=== PATIENT | female | born 1945 | race Caucasian/White ===

== ENCOUNTER 2022-05-09 14:05 | Outpatient (CLI) | payer MEDICARE, SELFPAY ==
--- NOTE | 2022-05-09 14:30 | MR_ITS ---
[facility] [address] [facility] [address] Phone:?[phone] Fax:?[phone] Referring Physician Information: Austen Redding M.D. [address] [facility] [address] Phone:?[phone] Fax:?[phone] Patient:Juana Moncada D.O.B:?1945 Sex:?Female Phone:?[phone] [facility] MRN:?[id number] Exam Date:?05/09/2022 ? EXAM: MR CERVICAL SPINE WITHOUT CONTRAST 1.5T CLINICAL INFORMATION: Neck pain, left arm numbness. CORRELATIVE IMAGES: Radiograph 10/03/2020. TECHNICAL INFORMATION: T1, T2 GRE, T2 FSE and STIR sagittal thin sections with T2 GRE and FSE axial sections at selected levels. CONTRAST:?None. SEDATION: None. INTERPRETATION:?Spinal Cord: No spinal cord signal abnormality. No Chiari malformation. Bony Structure and Alignment: Lordotic alignment of cervical spine. Osseous and paraspinous structures: Bone marrow signal is unremarkable. 8mm right thyroid nodule with possible calcification, frequently incidental (sagittal image 17). Vertebral artery flow voids are present, dominant on left. Facet Joints: Moderate to advanced multilevel facet degeneration, most notably left C3-4 through C5-6, C7-T1; milder on the right. No inflammatory facet arthropathy. Disc Degeneration/Operative changes: 2. Advanced disc degeneration with vertical disc narrowing most notably C2-3 through C5-6, C7-T1. Spondylotic ridging, bulging and/or ligamentum flavum buckling produce moderate central stenosis eccentric to the left at C3-4 with mild cord compression, moderate central stenosis with ventral cord compression at C4-5, mild to moderate central stenosis C6-7 with ventral cord contouring. Milder cord encroachment at other cervical and upper thoracic levels. Uncinated spurring and/or facet degeneration produces chronic foraminal stenosis, advanced left C3-4, C4-5, moderate to marked C5-6 through C6-7 and C2- 3; marked right C3-4, C5-6 and moderate C4-5. This produces nerve root compression or milder impingement at multiple levels. No significant atlantoaxial or atlanto-occipital pathology. CONCLUSION: 1. 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 2. Multilevel chronic foraminal stenosis eccentric to the left as delineated above. 3. Multilevel primarily left-sided advanced facet degeneration without inflammatory arthropathy. 4. No spinal cord signal pathology. RSP Electronically signed on 05/11/2022 10:46:00 AM by Jeromy Cardenas M.D.
== END 2022-05-09 14:06 | disposition home or self-care (01) ==
PROVIDERS: PCP Family Medicine; Visit Provider Family Medicine
DX: M54.2 Cervicalgia (principal); M50.31 Other cervical disc degeneration, high cervical region; R20.0 Anesthesia of skin
CPT/HCPCS: 72141

== ENCOUNTER 2023-07-30 13:25 | Outpatient (CLI) | payer MEDICARE, SELFPAY ==
--- NOTE | 2023-07-30 13:45 | MR_ITS ---
Patient: SHANON VILLALOBOS Facility:?[facility] Patient ID:?[id number] Site Patient ID:?[id number]. Site :?1945 Study:?MRI-Spine Lumbar w/o-07/30/2023 2:16:33 PM Ordering Physician:Tiffanie Redding Final Report: Indication: Lower back pain. Technique: Multisequence multiplanar MRI of the lumbar spine without the use of intravenous contrast. Comparison: MRI lumbar spine dated 01/26/2015. Findings: Similar grade 1 4 millimeter anterolisthesis at L4-L5. Vertebral body heights are maintained. Bone marrow signal intensity is within normal limits. Slight progression of multilevel intervertebral disc height loss most at L3-L4 and L4- L5. The conus medullaris terminates normally at L1 level. The paraspinal soft tissues are within normal limits. T12-L1: No significant spinal canal or neural foraminal stenosis. L1-L2: No significant spinal canal or right neural foraminal narrowing. Slight progression of mild-moderate left neural foraminal narrowing resulting from symmetric disc bulging and facet joint hypertrophy. L2-L3: No significant spinal canal stenosis. Similar mild-moderate left neural foraminal narrowing resulting from symmetric disc bulging and facet joint hypertrophy. No significant right neural foraminal narrowing. L3-L4: No significant spinal canal stenosis. Slight progression of moderate bilateral neural foraminal narrowing as sequela of symmetric disc bulging, endplate osteophytic ridging, and facet joint hypertrophy. L4-L5: Similar narrowing of the lateral recesses, worsening of now severe right neural foraminal narrowing, and similar mild left neural foraminal narrowing resulting from facet joint hypertrophy with anterolisthesis and disc bulge/uncovering. L5-S1: No significant spinal canal stenosis. Mild right and mild-moderate left neural foraminal narrowing resulting from symmetric disc bulging and facet joint hypertrophy. Small bilateral facet joint effusions. Impression: 1. Similar grade 1 4 millimeter anterolisthesis at L4-L5. 2. Slight progression of multilevel intervertebral disc height loss most pronounced at L3-L4 and L4-L5. 3. At L1-L2, slight worsening of mild-moderate left neural foraminal narrowing. 4. At L2-L3, similar mild-moderate left neural foraminal narrowing. 5. At L3-L4, slight worsening of moderate bilateral neural foraminal narrowing. 6. At L4-L5, similar narrowing of the lateral recesses and worsening of now severe right neural foraminal narrowing. 7. At L5-S1, similar mild-moderate left neural foraminal narrowing. Dictated by Howard Valerio MD @ 07/31/2023 1:52:58 PM Signed by:?Howard Valerio MD @07/31/2023 1:52:58 PM (Electronic Signature)
== END 2023-07-30 13:26 | disposition home or self-care (01) ==
LOC: MRI 13:26
PROVIDERS: PCP Family Medicine; Visit Provider Family Medicine
DX: M54.50 Low back pain, unspecified (principal); M51.26 Other intervertebral disc displacement, lumbar region; M51.27 Other intervertebral disc displacement, lumbosacral region
CPT/HCPCS: 72148

== ENCOUNTER 2023-09-09 09:35 | Outpatient (CLI) | payer MEDICARE, SELFPAY | END 2023-09-09 09:36 | disposition home or self-care (01) | LOC: INJ CL 09:36 | PROVIDERS: PCP Family Medicine; Visit Provider Family Medicine | DX: M54.16 Radiculopathy, lumbar region (principal); M51.36 Other intervertebral disc degeneration, lumbar region | CPT/HCPCS: 62323; J0702; Q9966 ==